=== PATIENT | female | born 1995 | race Hispanic/Latino ===

== ENCOUNTER 2018-03-04 10:46 | Emergency (ER) | payer OTHER, SELFPAY ==
[2018-03-04] MEDS ORDERED: NA CHLORIDE 0.9% 1,000 ML ONE (11:47)
[2018-03-04 12:02] LABS: Absolute Lymphocytes (CBC) 1.4 K/uL (0.7-4.9); Absolute Monocytes 0.7 K/uL (0.1-1.3); Absolute Neutrophil 4.8 K/uL (1.8-8.0); Basophils % 0.9 % (0-1.3); Eosinophils % 2.6 % (0-4.4); Hematocrit 41.4 % (36.0-45.0); MCH 29.6 pg (27.0-35.0); MCV 90.2 fL (80-100); MPV 9.4 fL (7.6-11.3); Monocytes % 9.6 % (3.3-12.3); RBC Red Blood Cell Count 4.59 M/uL (3.86-4.86)
[2018-03-04 12:09] LABS: Urine Bacteria <20 /HPF (<20); Urine Culture Reflex Order NOT NEEDED; Urine RBC <5 /HPF (NONE SEEN)
[2018-03-04 12:10] LABS: Urine Blood NEGATIVE (NEG); Urine Glucose NEGATIVE (NEG); Urine Protein 1+ (NEG); Urine Specific Gravity >1.030 (1.005-1.030)
[2018-03-04 12:10] LABS: Urine Mucus 1+ /HPF (NONE SEEN)
[2018-03-04 12:16] LABS: Bicarbonate 25 mEq/L (21-31); Glucose Level 100 mg/dL (65-120); Lipase 33 U/L (22-51); Potassium 3.8 mEq/L (3.6-5.0); Sodium Level 137 mEq/L (135-145)
[2018-03-04 12:22] LABS: ALT/SGPT 42 IU/L (10-60); AST/SGOT 31 IU/L (10-42); Alkaline Phosphatase 83 IU/L (42-121); Amylase Level 63 U/L (28-100); BUN Blood Urea Nitrogen 15 mg/dL (6-20); Bilirubin Direct 0.1 mg/dL (0-0.2); Bilirubin Total 0.8 mg/dL (0.3-1.2); Protein, Total 7.5 g/dL (6.0-8.3)
[2018-03-04] MEDS ORDERED: ASPIRIN 81 MG CHEWABLE TABLET ONE (12:24)
[2018-03-04] MEDS ORDERED: NA CHLORIDE 0.9% 500 ML ONE (12:24)
[2018-03-04] MEDS ORDERED: KETOROLAC 30 MG/ML INJ ONE (12:31)
--- NOTE | 2018-03-04 14:23 | ER ---
Nurse's Notes [facility] Name: Rimma Sanchez Age: 22 yrs Sex: Female : 1995 Arrival Date: 03/04/2018 Time: 10:50 Bed 24 Private MD: None, None Diagnosis: Lower abdominal pain, unspecified;Unspecified ovarian cysts Presentation: 03/04 11:09 Presenting complaint: Patient states: Abdominal cramps for the past two weeks, she's aj1 been taking Aleve to help with the pain, but it only helps for 30- 45 minutes. 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 Pt has control implant in her left arm that was placed 4 years ago, she has not had a period since control was placed, but had some spotting 2 weeks ago, which she states has not happened before. Denies any current vaginal bleeding. Reports she started taking Adipex 3 weeks ago, but it made her feel weird so she stopped taking it 3 days ago. Transition of care: patient was not received from another setting of care. Onset of symptoms was February 18, 2018. Risk Assessment: Do you want to hurt yourself or someone else? Patient reports no desire to harm self or others. Initial Sepsis Screen: Does the patient meet any 2 criteria? No. Patient's initial sepsis screen is negative. Does the patient have a suspected source of infection? No. Patient's initial sepsis screen is negative. Care prior to arrival: Medication(s) given: Aleve. 11:09 Method Of Arrival: Ambulatory aj1 11:09 Acuity: ELIAS 3 aj1 Triage Assessment: 11:14 General: Appears uncomfortable, Behavior is calm, cooperative, appropriate for age. aj1 Pain: Complains of pain in suprapubic area Pain does not radiate. Pain currently is 10 out of 10 on a pain scale. Quality of pain is described as crampy, Pain began 2 weeks ago Is continuous. GI: Abdomen is non-distended. 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 - Social history:: Smoking status: Patient/guardian denies using tobacco. - Ebola Screening: : Patient negative for fever greater than or equal to 101.5 degrees Fahrenheit, and additional compatible Ebola Virus Disease symptoms Patient denies exposure to infectious person Patient denies travel to an Ebola-affected area in the 21 days before illness onset. Screenin:16 Abuse screen: Denies threats or abuse. Denies injuries from another. Nutritional aj1 screening: No deficits noted. Tuberculosis screening: No symptoms or risk factors identified. Assessment: 11:16 General: Appears in no apparent distress. uncomfortable, Behavior is calm, cooperative, aj1 appropriate for age. Pain: Complains of pain in suprapubic area Pain does not radiate. Pain currently is 10 out of 10 on a pain scale. Quality of pain is described as crampy, Pain began 2 weeks ago Is continuous. Neuro: Level of Consciousness is awake, alert, obeys commands, Oriented to person, place, time, situation, Speech is normal, Facial symmetry appears normal. Cardiovascular: Patient's skin is warm and dry. Respiratory: Airway is patent Respiratory effort is even, unlabored, Respiratory pattern is regular, symmetrical. GI: Abdomen is non-distended, Bowel sounds present X 4 quads. Abd is soft and non tender X 4 quads. Patient currently denies diarrhea, nausea, vomiting, Parent/caregiver reports the patient having cramping. : Denies burning with urination, urinary frequency, urgency, vaginal bleeding, vaginal itching. EENT: No signs and/or symptoms were reported regarding the EENT system. Derm: No signs and/or symptoms reported regarding the dermatologic system. Skin is pink, warm \T\ dry. normal. Musculoskeletal: No signs and/or symptoms reported regarding the musculoskeletal system. Circulation, motion, and sensation intact. 12:05 Reassessment: Patient appears in no apparent distress at this time. No changes from aj1 previously documented assessment. Patient and/or family updated on plan of care and expected duration. Pain level reassessed. Patient is alert, oriented x 3, equal unlabored respirations, skin warm/dry/pink. 12:37 Reassessment: Patient transported to US via wheelchair. aj1 13:35 Reassessment: Patient appears in no apparent distress at this time. No changes from aj1 previously documented assessment. Patient and/or family updated on plan of care and expected duration. Pain level reassessed. Patient is alert, oriented x 3, equal unlabored respirations, skin warm/dry/pink. 14:09 Reassessment: Patient appears in no apparent distress at this time. No changes from aj1 previously documented assessment. Patient and/or family updated on plan of care and expected duration. Pain level reassessed. Patient is alert, oriented x 3, equal unlabored respirations, skin warm/dry/pink. 14:38 Reassessment: Patient is alert, oriented x 3, equal unlabored respirations, skin aa5 warm/dry/pink. Vital Signs: 11:14 BP 133 / 84; Pulse 70; Resp 16; Temp 98.4(O); Pulse Ox 98% on R/A; Weight 99.79 kg (R); aj1 Height 5 ft. 3 in. (160.02 cm) (R); Pain 10/10; 12:05 BP 130 / 90; Pulse 81; Resp 18; Pulse Ox 100% on R/A; aj1 14:08 BP 129 / 88; Pulse 68; Resp 18; Pulse Ox 100% on R/A; aj1 11:14 Body Mass Index 38.97 (99.79 kg, 160.02 cm) aj1 ED Course: 10:50 Patient arrived in ED. sb2 10:51 None, None is Private Physician. sb2 11:06 Verna Richmond, RN is Primary Nurse. aj1 11:10 Kenroy العلي PA is PHCP. cp 11:10 Perez Blanchard MD is Attending Physician. cp 11:13 Triage completed. aj1 11:14 Arm band placed on Patient placed in an exam room, on a stretcher. aj1 11:16 Patient has correct armband on for positive identification. Bed in low position. Call aj1 light in reach. Side rails up X 1. 11:16 No provider procedures requiring assistance completed. aj1 12:50 Transvaginal Study Probe In Process Unspecified. EDMS 14:38 IV discontinued, intact, bleeding controlled, No redness/swelling at site. Pressure aa5 dressing applied. Administered Medications: 12:05 Drug: NS 0.9% 1000 ml Route: IV; Rate: 1 bolus; Site: left antecubital; aj1 12:36 Drug: TORadol 30 mg Route: IVP; Site: left antecubital; aj1 14:40 Follow up: Response: No adverse reaction aj1 Outcome: 14:23 Discharge ordered by . cp 14:38 Discharged to home ambulatory. aa5 14:38 Condition: stable 14:38 Discharge instructions given to patient, Instructed on discharge instructions, follow up and referral plans. medication usage, Demonstrated understanding of instructions, follow-up care, medications, Prescriptions given X 1. 14:39 Patient left the ED. aa5 Signatures: Dispatcher [employer] EDMS Verna Richmond RN RN aj1 Shu Allen RN RN aa5 Kenroy العلي PA PA cp Billeau, Sheri sb2 Corrections: (The following items were deleted from the chart) 11:16 11:09 Presenting complaint: Patient states: Abdominal cramps for the past two weeks, aj1 she's been taking Aleve to help with the pain, but it only helps for 30- 45 minutes. 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 Pt has control implant in her left arm that was placed 4 years ago, she has not had a period since control was placed, but had some spotting 2 weeks ago, which she states has not happened before. Denies any current vaginal bleeding. aj1
--- NOTE | 2018-03-04 14:23 | EDPHYS ---
Physician Documentation [facility] Name: Rimma Sanchez Age: 22 yrs Sex: Female : 1995 Arrival Date: 03/04/2018 Time: 10:50 Bed 24 Private MD: None, None ED Physician Perez Blanchard HPI: 03/04 11:20 This 22 yrs old Female presents to ER via Ambulatory with complaints of cp Abdominal Cramping. 11:20 The patient presents with abdominal pain in the lower abdomen. Onset: The cp symptoms/episode began/occurred 2 week(s) ago. The symptoms do not radiate. Associated signs and symptoms: Pertinent negatives: nausea and vomiting, anorexia, chest pain, constipation, diarrhea, dysuria, fever, vaginal discharge. The symptoms are described as crampy. Modifying factors: the symptoms are aggravated by pressure. 11:20 Patient reports having Implanon control method placed four years ago. Has not had cp menstrual cycle since placement but did have some spotting 2 weeks ago. Denies pain with intercourse, denies vaginal discharge or odor. 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 - Social history:: Smoking status: Patient/guardian denies using tobacco. - Ebola Screening: : Patient negative for fever greater than or equal to 101.5 degrees Fahrenheit, and additional compatible Ebola Virus Disease symptoms Patient denies exposure to infectious person Patient denies travel to an Ebola-affected area in the 21 days before illness onset. ROS: 11:55 Constitutional: Negative for body aches, chills, fever, poor PO intake. cp 11:55 Eyes: Negative for injury, pain, redness, and discharge. cp 11:55 ENT: Negative for drainage from ear(s), ear pain, sore throat, difficulty swallowing, difficulty handling secretions. 11:55 Cardiovascular: Negative for chest pain, edema, palpitations. 11:55 Respiratory: Negative for cough, shortness of breath, wheezing. 11:55 Abdomen/GI: Positive for abdominal cramps, of the right lower quadrant and left lower quadrant, Negative for nausea, vomiting, and diarrhea, constipation, black/tarry stool, rectal bleeding. 11:55 Back: Negative for pain at rest, pain with movement, radiated pain. 11:55 : Negative for urinary symptoms, pelvic pain, vaginal bleeding, vaginal discharge. 11:55 Skin: Negative for cellulitis, rash. 11:55 All other systems are negative. Exam: 12:03 Constitutional: The patient appears in no acute distress, alert, awake, non-toxic, well cp developed, well nourished. 12:03 Head/Face: Normocephalic, atraumatic. cp 12:03 Eyes: Periorbital structures: appear normal, Pupils: equal, round, and reactive to light and accomodation, Extraocular movements: intact throughout, Conjunctiva: normal, no exudate, no injection, Sclera: no appreciated abnormality, Lids and lashes: appear normal, bilaterally. 12:03 ENT: External ear(s): are unremarkable, Nose: is normal, Mouth: is normal, Posterior pharynx: is normal, airway is patent, no erythema, no exudate. 12:03 Chest/axilla: Inspection: normal, Palpation: is normal, no crepitus, no tenderness. 12:03 Cardiovascular: Rate: normal, Rhythm: regular. 12:03 Respiratory: the patient does not display signs of respiratory distress, Respirations: normal, no use of accessory muscles, no retractions, no splinting, no tachypnea, labored breathing, is not present, Breath sounds: are clear throughout, no decreased breath sounds, no stridor, no wheezing. 12:03 Abdomen/GI: Inspection: abdomen appears normal, Bowel sounds: active, all quadrants, Palpation: soft, in all quadrants, mild abdominal tenderness, in the right lower quadrant and left lower quadrant, rebound tenderness, is not appreciated, voluntary guarding, is not appreciated, involuntary guarding, is not appreciated. 12:03 Back: pain, is absent, ROM is normal. 12:03 Skin: cellulitis, is not appreciated, no rash present. 12:03 Neuro: Orientation: to person, place \T\ time. Mentation: lucid, able to follow commands, Cerebellar function: is grossly normal, Motor: moves all fours, strength is normal, Sensation: is normal, Gait: is steady. Vital Signs: 11:14 BP 133 / 84; Pulse 70; Resp 16; Temp 98.4(O); Pulse Ox 98% on R/A; Weight 99.79 kg (R); aj1 Height 5 ft. 3 in. (160.02 cm) (R); Pain 10/10; 12:05 BP 130 / 90; Pulse 81; Resp 18; Pulse Ox 100% on R/A; aj1 14:08 BP 129 / 88; Pulse 68; Resp 18; Pulse Ox 100% on R/A; aj1 11:14 Body Mass Index 38.97 (99.79 kg, 160.02 cm) aj1 MDM: 11:10 Patient medically screened. cp 12:00 Differential diagnosis: Ectopic , Ovarian Torsion, Pelvic Inflammatory cp Disease, Tubal Ovarian Abcess, Ureterolithiasis, urinary tract infection. 14:21 Data reviewed: vital signs, nurses notes, lab test result(s), radiologic studies, cp ultrasound. 14:21 Counseling: I had a detailed discussion with the patient and/or guardian regarding: the cp historical points, exam findings, and any diagnostic results supporting the discharge/admit diagnosis, lab results, radiology results, the need for outpatient follow up, a family practitioner, to return to the emergency department if symptoms worsen or persist or if there are any questions or concerns that arise at home. Response to treatment: the patient's symptoms have mildly improved after treatment. Special discussion: Based on the patient's Hx, exam, and Dx evaluation, there is no indication for emergent surgery or inpatient Tx. It is understood by the patient/guardian that if the Sx's persist or worsen they need to return immediately for re-evaluation. 03/04 11:29 Order name: Amylase, Serum; Complete Time: 12:26 cp 03/04 11:29 Order name: Basic Metabolic Panel; Complete Time: 12:26 cp 03/04 11:29 Order name: CBC with Diff; Complete Time: 12:16 cp 03/04 11:29 Order name: Creatinine for Radiology; Complete Time: 12:26 cp 03/04 11:29 Order name: Hepatic Function; Complete Time: 12:26 cp 03/04 11:29 Order name: Lipase; Complete Time: 12:26 cp 03/04 11:15 Order name: Urine Test (obtain specimen); Complete Time: 11:44 cp 03/04 11:29 Order name: Urine Microscopic Only; Complete Time: 12:16 cp 03/04 12:16 Interpretation: Normal except: SQEPI 5-10. cp 03/04 11:37 Order name: Urine Dipstick--Ancillary (enter results); Complete Time: 12:16 bd 03/04 12:16 Interpretation: Normal except: UPROT 1+. cp 03/04 11:37 Order name: Urine --Ancillary (enter results); Complete Time: 12:16 bd 03/04 12:28 Order name: Transvaginal Study Probe; Complete Time: 14:34 EDMS 03/04 11:15 Order name: Urine Dipstick-Ancillary (obtain specimen); Complete Time: 11:44 cp 03/04 11:29 Order name: IV Saline Lock; Complete Time: 12:05 cp 03/04 11:29 Order name: Labs collected and sent; Complete Time: 12:05 cp Administered Medications: 12:05 Drug: NS 0.9% 1000 ml Route: IV; Rate: 1 bolus; Site: left antecubital; aj1 12:36 Drug: TORadol 30 mg Route: IVP; Site: left antecubital; aj1 14:40 Follow up: Response: No adverse reaction aj1 Disposition: 03/04/18 14:23 Discharged to Home. Impression: Lower abdominal pain, unspecified, Unspecified ovarian cysts. - Condition is Stable. - Discharge Instructions: Ovarian Cyst, Abdominal Pain, Women. - Prescriptions for Naprosyn 500 mg Oral Tablet - take 1 tablet by ORAL route 2 times per day take with food; 20 tablet. - Medication Reconciliation Form, Thank You Letter, Antibiotic Education, Prescription Opioid Use form. - Follow up: Private Physician; When: 2 - 3 days; Reason: Recheck today's complaints. - Problem is new. - Symptoms have improved. Addendum: 03/06/2018 13:34 Co-signature as Attending Physician, Perez Blanchard MD. g s Signatures: Dispatcher [employer] Verna Gupta RN RN aj1 Shu Allen RN RN aa5 Kenroy العلي, PA PA Perez Jewell MD MD Corrections: (The following items were deleted from the chart) 03/04 12:28 12:18 Pelvis Complete+[id number] ordered. EDSD EDMS 14:35 14:23 03/04/2018 14:23 Discharged to Home. Impression: Lower abdominal pain, cp unspecified. Condition is Stable. Forms are Medication Reconciliation Form, Thank You Letter, Antibiotic Education, Prescription Opioid Use. Follow up: Private Physician; When: 2 - 3 days; Reason: Recheck today's complaints. Problem is new. Symptoms have improved. cp 14:39 14:35 03/04/2018 14:23 Discharged to Home. Impression: Lower abdominal pain, aa5 unspecified; Unspecified ovarian cysts. Condition is Stable. Discharge Instructions: Abdominal Pain, Women. Prescriptions for Naprosyn 500 mg Oral Tablet - take 1 tablet by ORAL route 2 times per day take with food; 20 tablet. and Forms are Medication Reconciliation Form, Thank You Letter, Antibiotic Education, Prescription Opioid Use. Follow up: Private Physician; When: 2 - 3 days; Reason: Recheck today's complaints. Problem is new. Symptoms have improved. cp 03/05 12:00 03/04 14:35 Data reviewed: vital signs, nurses notes, lab test result(s), radiologic cp studies, ultrasound, cp
--- NOTE | 2018-03-04 14:30 | RAD REPORT ---
EXAM DESCRIPTION: US - Transvaginal Study Probe - 03/04/2018 12:49 pm CLINICAL HISTORY: Pelvic pain COMPARISON: none FINDINGS: The uterus measures 7 x 3 x 3cm. A fibroid is not seen. Endometrial stripe measures 7 mill imeters. A 2.7 centimeter right ovarian cyst is present. Blood flow is present within the right ovary. The lef t ovary is normal in size and echotexture No significant free fluid is seen. IMPRESSION: 2.7 centimeter right ovarian cyst without significant free fluid
[2018-03-04 14:57] VITALS: TEMP 98.4
[2018-03-04 14:59] VITALS: O2SAT 100
[2018-03-04 15:00] VITALS: BP 129/88
== END 2018-03-04 14:39 | disposition home or self-care (01) ==
LOC: ER 10:46
DX: N83.209 Unspecified ovarian cyst, unspecified side (principal)
CPT/HCPCS: 36415; 76830; 80048; 80076; 81003; 81015; 81025; 82150; 83690; 85025; 96374; 99283; J7030

== ENCOUNTER 2022-07-20 10:54 | Emergency (ER) | payer OTHER, SELFPAY ==
--- OUTSIDE RECORDS SUMMARY | 2022-07-20 10:57 | XMS REPORT | Continuity of Care Document ---
:1995 Author Organization [facility] Address [address] [place] [address] Care Team Providers Name Role Phone Tay Paul Primary Care Physician [phone] GAIL Attending Clinician Unavailable Mary Carter RN Attending Clinician Unavailable Only, Ang Db Test Attending Clinician Unavailable Shaka Arita Attending Clinician SHAKA BOLES Attending Clinician Unavailable TAY ROME Attending Clinician Unavailable Tay Paul Attending Clinician Doctor Unassigned, [place] Attending Clinician Unavailable GAIL Admitting Clinician Unavailable Payers Payer Name Policy Type Policy Number Effective Date Expiration Date Silvia abhay R (PPO) [id number] 2017 00:00:00 [place] [id number] 2019 00:00:00 [facility] (MEDICAID) Problems Condition Condition Condition Status Onset Resolution Last Treating Co mments Source Name Details Category Date Date Treatment Clinician Date Need for Need for Disease Active 2019-10 Unive rs HPV HPV 0-08 ity of vaccinatio vaccinatio 00:00: Jhonatan mcdonald n n 00 Medical Branch Gonorrhea Gonorrhea Disease Active Uni vers 8-22 ity of 00:00: [place] 00 [facility] Chlamydia Chlamydia Disease Active Uni vers 8-22 ity of 00:00: [place] [facility] Class 2 Class 2 Disease Active Univers obesity obesity 8-21 ity of with body with body 00:00: Tyson brandt mass index mass index 00 Me dical (BMI) of (BMI) of Branch 39.0 to 39.0 to 39.9 in 39.9 in adult, adult, unspecifie unspecifie d obesity d obesity type, type, unspecifie unspecifie d whether d whether serious serious comorbidit comorbidit y present y present HPV HPV Disease Active Univers vaccine vaccine 8-21 ity of counseling counseling 00:00: [place] 00 [facility] Postcoital Postcoital Disease Active U nivers bleeding bleeding 8-21 ity of 00:00: [place] [facility] Irregular Irregular Disease Active Uni vers menstrual menstrual 8-21 ity of cycle cycle 00:00: [address] Encounter Encounter Disease Active Uni vers for for 8-21 ity of contracept contracept [place] vishal vishal 00 Medical management management Br anch , , unspecifie unspecifie d type d type Well woman Well woman Disease Active U nivers exam (no exam (no 8-21 ity of gynecologi gynecologi [place] edie exam[place] edie exam) 00 [facility] Nexplanon Nexplanon Disease Active 2015-10 Uni vers removal removal 2-29 ity of 00:00: [place] [facility] Nexplanon Nexplanon Disease Active 2015-10 Uni vers insertion insertion 2-15 ity of 00:00: [address] Well woman Well woman Disease Active 2015-10 U nivers exam exam 0-20 ity of 00:00: [address] Screening Screening Disease Active 2015-10 Uni vers examinatio examinatio 0-20 it y of n for STD n for STD 00:00: Tyson brandt (sexually (sexually 00 [facility] transmitte transmitte Br anch d disease) d disease) BMI BMI Disease Active 2015-10 Univers 36.0-36.9, 36.0-36.9, 0-20 it y of adult adult 00:00: [place] [id number] Medical Branch H/O H/O Disease Active 2015-10 Univers chlamydia chlamydia 0-20 ity of infection infection 00:00: [place] [address] Allergies, Adverse Reactions, Alerts Allergy Allergy Status Severity Reaction(s) Onset Inactive Treating Comm ents Source Name Type Date Date Clinician NO KNOWN Drug Active Univers ALLERGIE Class ity of S [facility] Social History Social Habit Start Date Stop Date Quantity Comments Source History SDOH University o f Alcohol Frequency [place] M edical Branch History SDOH University o f Alcohol Std [place] [facility] Drinks Branch History SDOH University o f Alcohol Binge [place] Medic al Branch Exposure to Not sure University of SARS-CoV-2 [facility] (event) [place] Alcohol intake 2020-07-11 2020-07-11 Current drinker Unive rsity of 00:00:00 00:00:00 of alcohol [facility] (finding) [place] Alcohol Comment 2013-03-30 2013-03-30 occasional Universit y of 00:00:00 00:00:00 [facility] Tobacco use and 2013-01-27 2013-01-27 Never used Universit y of exposure 00:00:00 00:00:00 [facility] Sex Ass[birth year] At [birth year] Universit y of 00:00:00 00:00:00 [facility] Smoking Status Start Date Stop Date Source Never Smoker [facility] Medications Ordered Filled Start Stop Current Ordering Indication Dosage Frequency Signature Comments Components Source Medication Medication Date Date Medication? Clinician (SIG) Name Name No known 2019-10 No Univers medications 0-08 ity of 16:13: [address] No known 2019-10 No Univers medications 0-08 ity of 16:13: [address] No known No Univers medications [facility] No known No Univers medications [facility] No known No Univers medications [facility] clindamycin clindamycin No 1applic Q1D clindamyci [place] 2 % vaginal 2 % vaginal ator(s) n 2 % da cream cream ful vaginal [facility] Insert 1 Insert 1 cream al applicatorf applicatorf Insert 1 Health ul every ul every applicator O utreac day by day by ful every h vaginal vaginal day by Program route at route at vaginal bedtime for bedtime for route at 7 days. 7 days. bedtime for 7 days. Immunizations Ordered Filled Immunization Date Status Comments Sourc e Immunization Name Name HPV9 2020-07-11 Completed University of 00:00:00 [facility] HPV9 2020-07-11 Completed University of 00:00:00 [facility] HPV9 2019-07-24 Completed University of 00:00: [facility] HPV9 2019-07-24 Completed University of 00:00: [facility] Branch HPV9 2019-05-24 Completed University of 00:00:00 [facility] Branch HPV9 2019-05-24 Completed University of 00:00: [facility] Branch HPV9 2019-05-24 Completed University of 00:00: [facility] HPV9 2019-05-24 Completed University of 00:00:00 [facility] TDAP 2010-10-04 Completed University of 00:00:00 [facility] Tdap 2010-10-04 Completed University of 00:00:00 [facility] Tdap 2010-10-04 Completed University of 00:00:00 [facility] Tdap 2010-10-04 Completed University of 00:00:00 [facility] TDAP 2010-10-04 Completed University of 00:00:00 [facility] Vital Signs Vital Name Observation Time Observation Value Comments Source BP Diastolic 2022-04-29 00:00:00 88 mm[Hg] [place] [facility] Height 2022-04-29 00:00:00 63 [in_i] [place] [facility] BMI (Body Mass 2022-04-29 00:00:00 39.5 kg/[facility]2 [facility] Index) [facility] BP Systolic 2022-04-29 00:00:00 117 mm[Hg] [place] [facility] Body Weight 2022-04-29 00:00:00 3568 [oz_av] [place] [facility] BP Diastolic 2022-01-19 00:00:00 84 mm[Hg] [place] [facility] Height 2022-01-19 00:00:00 63 [in_i] [place] [facility] BMI (Body Mass 2022-01-19 00:00:00 40.2 kg/m2 [place] animal [facility] code enforcement officer Index) [facility] BP Systolic 2022-01-19 00:00:00 126 mm[Hg] [place] [facility] Body Weight 2022-01-19 00:00:00 227 [lb_av] [place] [facility] BP Diastolic 2021-09-05 00:00:00 78 mm[Hg] [place] [facility] Height 2021-09-05 00:00:00 63 [in_i] [place] [facility] BMI (Body Mass 2021-09-05 00:00:00 40.6 kg/m2 [facility] animal park code enforcement officer Index) [facility] BP Systolic 2021-09-05 00:00:00 112 mm[Hg] [place] [facility] Body Weight 2021-09-05 00:00:00 229 [lb_av] [place] [facility] BP Diastolic 2021-08-07 00:00:00 82 mm[Hg] [place] [facility] Height 2021-08-07 00:00:00 63 [in_i] [place] [facility] BMI (Body Mass 2021-08-07 00:00:00 40.9 kg/m2 [facility] animal park code enforcement officer Index) [facility] BP Systolic 2021-08-07 00:00:00 115 mm[Hg] [place] [facility] Body Weight 2021-08-07 00:00:00 231 [lb_av] [place] [facility] Systolic blood 2019-05-24 15:36:00 116 mm[Hg] Prema garcia pressure [facility] Diastolic blood 2019-05-24 15:36:00 75 mm[Hg] [facility] Heart rate 2019-05-24 15:36:00 72 /min [facility] Body temperature 2019-05-24 15:36:00 36.56 [facility] Respiratory rate 2019-05-24 15:36:00 16 /min Univ [facility] Body height 2019-05-24 15:36:00 160 cm [facility] Body weight 2019-05-24 15:36:00 94.405 kg [facility] BMI 2019-05-24 15:36:00 36.87 kg/m2 [facility] Procedures Procedure Date / Time Performed Performing Clinician Ewdard enrique GARDASIL 9 (HPV 9V) 2019-05-24 16:01:31 Tay [facility] ASSIGNMENT OF BENEFITS 2019-05-24 15:14:28 Doctor Unassigned, No [facility] Encounters Start End Encounter Admission Attending Care Care Encounter Source Date/Time Date/Time Type Type Clinicians Facility Department ID 2022-04-30 2022-04-30 Outpatient VILLA ARREGUIN [facility] [id number] [place] 00:00:00 00:00:00 SSA [id number] da [facility] 2022-04-29 2022-04-29 [facility] - [id number] [place] 00:00:00 00:00:00 Reed Lombardo da CHICKEN CUTTER-PHOTOGRAPHIC INTELLIGENCE OFFICER-C: Taoist Epi scop [address] [facility] [id number] Progr am , Ph. 2022-01-19 2022-01-19 Hortencia DRIVER [facility] [id number] [place] 00:00:00 00:00:00 Amanda SSA Bond da Robbi, Taoist Episco p PHOTOGRAPHIC INTELLIGENCE OFFICER: [address] [facility] F N, RETAIL OPERATIONS SPECIALIST [facility] [address] Progr am , Ph. 2021-11-07 2021-11-07 Letter PREMA Carter [id number] Univers 00:00:00 00:00:00 (Out) Mary MARES [id number] y [facility] [id number] [place] as [phone] [address] 2021-11-06 2021-11-06 Laboratory Only, Ang Db Test [facility] [id number] Univers 12:30:00 12:45:00 Only Shaka Boles [facility] [id number] [facility] [id number] [place] as KEESHA?BLEA [id number] [facility] [address] MEDICAL OFFICE BUILDING 2021-11-06 2021-11-06 Outpatient R BERTIN, [facility] [id number] Univers 12:30:00 12:30:00 SHAKA [facility] 2021-09-16 2021-09-16 Outpatient R WILD, [facility] [id number] Univers 14:45:00 14:45:00 TAY renteria o f [facility] 2021-09-05 2021-09-05 Hortencia DRIVER [facility] [place] - [id number] [place] 00:00:00 00:00:00 Amanda SSA Bond [id number] da Robbi, Taoist Episco p PHOTOGRAPHIC INTELLIGENCE OFFICER: [address] F N, RETAIL OPERATIONS SPECIALIST [facility] [address] Hubert bell , Ph. 2021-09-04 2021-09-04 Outpatient VILLA ARREGUIN [place] [id number] [place] 10:28:00 10:28:00 SSA [id number] [facility] 2021-08-07 2021-08-07 Hortencia DRIVER [place] - [id number] [place] 00:00:00 00:00:00 Amanda SSA Bond [address] da Robbi, Taoist Episco p PHOTOGRAPHIC INTELLIGENCE OFFICER: [address] F N, RETAIL OPERATIONS SPECIALIST [facility] [place] [address] Progr arabella , Ph. 2021-08-06 2021-08-06 Outpatient VILLA ARREGUIN [place] [id number] [place] 05:38:00 05:38:00 SSA [id number] [facility] 2020-11-23 2020-11-23 Outpatient R [facility] [id number] Univers 11:40:00 11:40:00 ity of [facility] 2020-10-18 2020-10-18 Outpatient R WILD [facility] [id number] Univers 13:30:00 13:30:00 TAY renteria o leticia [facility] 2020-10-14 2020-10-14 Outpatient R WILD [facility] [id number] Univers 15:15:00 15:15:00 TAY renteria o leticia [facility] 2020-07-11 2020-07-11 Outpatient R WILD [facility] [id number] Univers 15:30:00 15:30:00 TAY kelly [facility] 2020-05-28 2020-05-28 Outpatient R WILD [facility] [id number] Univers 10:15:00 10:15:00 TAY kelly [facility] 2020-04-17 2020-04-17 Outpatient Sandra ROME [facility] [id number] Univers 09:45:00 09:45:00 TAY kelly [facility] 2020-04-17 2020-04-17 Outpatient R WILD [facility] [id number] Univers 09:30:00 09:30:00 TAY kelly [facility] 2020-03-13 2020-03-13 Outpatient Sandra ROME [facility] [id number] Univers 08:15:00 08:15:00 TAY hui [facility] 2019-05-24 2019-05-24 Office Wild MDOLEGARIO [id number] Univers 10:23:21 11:23:15 Visit Tay R [employer] [id number] ity of [facility] [id number] [place] as MATERNAL [id number] Med ical & CHILD [address] [place] [address] 2019-05-24 2019-05-24 Orders Doctor PREMA [id number] Univers 00:00:00 00:00:00 Only Unassigned, VISHNU [id number] ity of [place] [facility] [id number] [place] [id number] [place] [address] Branch Results Test Description Test Time Test Comments Results Result Comments Source Cytology report of Cervical or vaginal smear or scrapi ng Cyto 2021-08-09 00:00:00 stain.thin prep Test Item Value Reference Range Interpretation Comme nts age gdln acog testing (test code = age gdln acog testing) 21-29 Cytology report of Cervical or vaginal smear or scraping Cyto comme nt stain (test code = 33578-1) Statement of adequacy [Interpretation] of Cervical or vaginal comme nt smear or scraping by Cyto stain (test code = 35657-0) Job Coaching who read Cyto stain of Cervical or vaginal smear or comm ent scraping (test code = 33846-7) Microscopic observation [Identifier] in Unspecified specimen by . Other stain (test code = 69248-1) note: (test code = note:) comment Cytology report of Cervical or vaginal smear or scraping Cyto comme nt stain.thin prep (test code = 71644-3) Chlamydia trachomatis rRNA [Presence] in Cervix by DAGOBERTO with positiv e negative A probe detection (test code = 69744-4) Neisseria gonorrhoeae rRNA [Presence] in Cervix by DAGOBERTO with negativ e negative probe detection (test code = 70535-4) Trichomonas vaginalis rRNA [Presence] in Unspecified specimen ne gative negative by DAGOBERTO with probe detection (test code = 49670-7) [facility] [Presence] in Serum by RPR 2021-08-08 00:00:00 Test Item Value Reference Range Interpretation Comments Reagin Ab [Presence] in Serum by non reactive non reactive RPR (test code = 43507-1) [facility] Ab+HIV1 p24 Ag [Presence] in Serum or Plasma by [id number] 00:00:00 Test Item Value Reference Range Interpretation Comments HIV 1+2 Ab+HIV1 p24 Ag non reactive non reactive [Presence] in Serum or Plasma by Immunoassay (test code = 95167-3) [facility] virus surface Ag [Presence] in Serum or Plasma by [id number] 00:00:00 Test Item Value Reference Range Interpretation Comments Hepatitis B virus surface Ag negative negative [Presence] in Serum or Plasma by Immunoassay (test code = 5196-1) [facility] [Presence] in Serum by RPR 2021-08-08 00:00:00 Test Item Value Reference Range Interpretation Comments Reagin Ab [Presence] in Serum by non reactive non reactive RPR (test code = 70396-6) [facility] Ab+HIV1 p24 Ag [Presence] in Serum or Plasma by [id number] 00:00:00 Test Item Value Reference Range Interpretation Comments HIV 1+2 Ab+HIV1 p24 Ag non reactive non reactive [Presence] in Serum or Plasma by Immunoassay (test code = 99795-4) [facility] surface Ag [Presence] in Serum or Plasma by [id number] 00:00:00 Test Item Value Reference Range Interpretation Comments Hepatitis B virus surface Ag negative negative [Presence] in Serum or Plasma by Immunoassay (test code = 5196-1) [facility]
--- NOTE | 2022-07-20 12:36 | RAD REPORT ---
EXAM DESCRIPTION: RAD - Foot Right 3 View - 07/20/2022 12:16 pm CLINICAL HISTORY: Right foot pain status post injury FINDINGS: 1 centimeter bony density lies adjacent to the lateral aspect of the cuboid. This probably represents an acute avulsed fracture fragment. Less likely this represents an unusual appearing ossi salbador. Clinical correlation is needed to confirm point tenderness in this region. If the diagnosis marilyn ins uncertain CT would be recommended. No dislocation
--- NOTE | 2022-07-20 12:51 | ER ---
Nurse's Notes [facility] Name: Rimma Sanchez Age: 26 yrs Sex: Female : 1995 Arrival Date: 07/20/2022 Time: 10:56 Bed Treatment Private MD: Diagnosis: Nondisplaced fracture of cuboid bone of left foot, subsequent encounter for fracture with routine healing Presentation: 07/20 11:03 Chief complaint: Patient states: About a week in a half ago pt stated stepped down from vg1 stairs and Right Foot 'folded' and since then pain has not subsided. Coronavirus screen: Vaccine status: Patient reports being unvaccinated. Client denies travel out of the [place] in the last 14 days. Ebola Screen: Patient negative for fever greater than or equal to 101.5 degrees Fahrenheit, and additional compatible Ebola Virus Disease symptoms Patient denies exposure to infectious person. Initial Sepsis Screen: Does the patient meet any 2 criteria? No. Patient's initial sepsis screen is negative. Does the patient have a suspected source of infection? No. Patient's initial sepsis screen is negative. Risk Assessment: Do you want to hurt yourself or someone else? Patient reports no desire to harm self or others. Onset of symptoms was July 07, 2022. 11:03 Method Of Arrival: Ambulatory [facility] 11:03 Acuity: ELIAS 4 vg1 Triage Assessment: 11:04 General: Appears in no apparent distress. comfortable, Behavior is calm, cooperative. vg1 Pain: Complains of pain in right foot. 11:04 Musculoskeletal: Capillary refill < 3 seconds, fingers. toes. vg1 HAND COLLATOR: 11:04 [facility] 06/2022 vg1 Historical: - Allergies: 11:04 No Known Allergies; vg1 - Home Meds: 11:04 None [Active]; vg1 - PMHx: 11:04 None; vg1 - PSHx: 11:04 None; vg1 - Immunization history:: Client reports having NOT received the Covid vaccine. - Social history:: Smoking status: Patient denies any tobacco usage or history of. Screenin:08 Abuse screen: Denies threats or abuse. Nutritional screening: On. Tuberculosis kr3 screening: No symptoms or risk factors identified. Fall Risk None identified. Assessment: 11:09 General: Appears in no apparent distress. comfortable, Behavior is calm, cooperative, kr3 appropriate for age. Musculoskeletal: Range of motion: intact in all extremities. 11:15 Pain: Complains of pain in dorsum of right foot. kr3 11:56 General: Appears in no apparent distress. comfortable, Behavior is calm, cooperative. tp1 Pain: Complains of pain in right foot Pain does not radiate. Pain currently is 5 out of 10 on a pain scale. at worst was 8 out of 10 on a pain scale. Quality of pain is described as throbbing, Pain began 07/07/22 Is continuous, Aggravated by weight bearing. Neuro: Level of Consciousness is awake, alert, obeys commands, Oriented to person, place, time, situation. Cardiovascular: Capillary refill < 3 seconds in bilateral toes Patient's skin is warm and dry. Pulses are palpable in right posterior tibial artery and right dorsalis pedis artery. Respiratory: Airway is patent Respiratory effort is even, unlabored. GI: No signs and/or symptoms were reported involving the gastrointestinal system. : No signs and/or symptoms were reported regarding the genitourinary system. EENT: No signs and/or symptoms were reported regarding the EENT system. Derm: Skin is pink, warm \T\ dry. Musculoskeletal: Circulation, motion, and sensation intact. 13:20 Reassessment: contacted central supply for walking boot. boot unavailable in PT size, tp1 provider notified. Vital Signs: 11:03 BP 125 / 88; Pulse 87; Resp 16; Temp 98.0; Pulse Ox 100% ; Weight 101.15 kg; Height 5 vg1 ft. 3 in. (160.02 cm); Pain 5/10; 13:18 BP 118 / 76; Pulse 75; Resp 16; Pulse Ox 98% on R/A; tp1 11:03 Body Mass Index 39.50 (101.15 kg, 160.02 cm) vg1 ED Course: 10:56 Patient arrived in ED. rg4 11:00 Kae Valdes [facility]-C [facility] snw 11:00 Melanie Owens MD is Attending Physician. snw 11:04 Triage completed. vg1 11:04 Arm band placed on. vg1 11:07 Rut Valdez RN is Primary Nurse. kr3 11:07 Bed in low position. Call light in reach. Side rails up X 1. kr3 11:56 No provider procedures requiring assistance completed. Patient did not have IV access tp1 during this emergency room visit. 12:17 Primary Nurse role handed off by Rut Valdez, AKHIL tp1 12:17 Argelia Kolb, RN is Primary Nurse. tp1 12:18 Foot Right 3 View XRAY In Process Unspecified. EDMS Administered Medications: No medications were administered Medication: 11:56 VIS not applicable for this client. tp1 Outcome: 12:51 Discharge ordered by . nolan 13:29 Discharged to home ambulatory. tp1 13:29 Condition: good 13:29 Discharge instructions given to patient, Instructed on discharge instructions, follow up and referral plans. medication usage, Demonstrated understanding of instructions, follow-up care, medications, Prescriptions given X 1. 13:29 Patient left the ED. tp1 Signatures: Dispatcher [employer] EDMS Kae Valdes FNP-C FURNACE COOLER-Consuelo Khan rg4 Valerie Sanchez RN RN vg1 Argelia Kolb RN RN tp1 Rut Valdez, AKHIL RN kr3 Corrections: (The following items were deleted from the chart) 11:05 11:03 Chief complaint: Patient states: Last week pt stated stepped down from stairs and vg1 Right Foot 'folded' and since then pain has not subsided. vg1 11:05 11:03 Onset of symptoms was July 13, 2022 vg1 vg1
--- NOTE | 2022-07-20 12:51 | EDPHYS ---
Physician Documentation [facility] Name: Rimma Sanchez Age: 26 yrs Sex: Female : 1995 Arrival Date: 07/20/2022 Time: 10:56 Bed Treatment Private MD: ED Physician Melanie Owens HPI: 07/20 11:55 This 26 yrs old Female presents to ER via Ambulatory with complaints of Ankle snw Pain. 11:55 The patient presents with pain, that is acute. The complaints affect the right foot. snw Context: The problem was sustained outdoors, resulted from a mis-step by the patient, hole, the patient is able to ambulate. Onset: The symptoms/episode began/occurred acutely. Associated signs and symptoms: The patient has no apparent associated signs or symptoms. Severity of symptoms: At their worst the symptoms were moderate. The patient has experienced similar episodes in the past. The patient has not recently seen a physician. pt stepped in a hole, lateral right foot pain, fell to left knee (contusion noted). 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 - Social history:: Smoking status: Patient denies any tobacco usage or history of. ROS: 11:54 Constitutional: Negative for fever, chills, and weight loss, Eyes: Negative for injury, snw pain, redness, and discharge, ENT: Negative for injury, pain, and discharge, Neck: Negative for injury, pain, and swelling, Cardiovascular: Negative for chest pain, palpitations, and edema, Respiratory: Negative for shortness of breath, cough, wheezing, and pleuritic chest pain, Abdomen/GI: Negative for abdominal pain, nausea, vomiting, diarrhea, and constipation, Back: Negative for injury and pain, : Negative for injury, bleeding, discharge, and swelling, Skin: Negative for injury, rash, and discoloration, Neuro: Negative for headache, weakness, numbness, tingling, and seizure. 11:54 MS/extremity: Positive for injury or acute deformity, pain, of the lateral side of right foot. Exam: 11:53 Constitutional: This is a well developed, well nourished patient who is awake, alert, snw and in no acute distress. Head/Face: Normocephalic, atraumatic. Eyes: Pupils equal round and reactive to light, extra-ocular motions intact. Lids and lashes normal. Conjunctiva and sclera are non-icteric and not injected. Cornea within normal limits. Periorbital areas with no swelling, redness, or edema. ENT: Nares patent. No nasal discharge, no septal abnormalities noted. Tympanic membranes are normal and external auditory canals are clear. Oropharynx with no redness, swelling, or masses, exudates, or evidence of obstruction, uvula midline. Mucous membranes moist. Neck: Trachea midline, no thyromegaly or masses palpated, and no cervical lymphadenopathy. Supple, full range of motion without nuchal rigidity, or vertebral point tenderness. No Meningismus. Chest/axilla: Normal chest wall appearance and motion. Nontender with no deformity. No lesions are appreciated. Cardiovascular: Regular rate and rhythm with a normal S1 and S2. No gallops, murmurs, or rubs. Normal PMI, no JVD. No pulse deficits. Respiratory: Lungs have equal breath sounds bilaterally, clear to auscultation and percussion. No rales, rhonchi or wheezes noted. No increased work of breathing, no retractions or nasal flaring. Abdomen/GI: Soft, non-tender, with normal bowel sounds. No distension or tympany. No guarding or rebound. No evidence of tenderness throughout. Back: No spinal tenderness. No costovertebral tenderness. Full range of motion. Skin: Warm, dry with normal turgor. Normal color with no rashes, no lesions, and no evidence of cellulitis. Neuro: Awake and alert, GCS 15, oriented to person, place, time, and situation. Cranial nerves II-XII grossly intact. Motor strength 5/5 in all extremities. Sensory grossly intact. Cerebellar exam normal. Normal gait. Psych: Awake, alert, with orientation to person, place and time. Behavior, mood, and affect are within normal limits. 11:53 Musculoskeletal/extremity: Extremities: grossly normal except: noted in the lateral side of right foot: contusion, tenderness, ROM: no acute changes, Circulation is intact in all extremities. Sensation intact. Vital Signs: 11:03 BP 125 / 88; Pulse 87; Resp 16; Temp 98.0; Pulse Ox 100% ; Weight 101.15 kg; Height 5 vg1 ft. 3 in. (160.02 cm); Pain 5/10; 13:18 BP 118 / 76; Pulse 75; Resp 16; Pulse Ox 98% on R/A; tp1 11:03 Body Mass Index 39.50 (101.15 kg, 160.02 cm) vg1 MDM: 11:13 Patient medically screened. snw 12:48 Data reviewed: vital signs, nurses notes. Data interpreted: Pulse oximetry: on room air snw is 100 %. Interpretation: normal. Counseling: I had a detailed discussion with the patient and/or guardian regarding: the historical points, exam findings, and any diagnostic results supporting the discharge/admit diagnosis, radiology results, the need for outpatient follow up, to return to the emergency department if symptoms worsen or persist or if there are any questions or concerns that arise at home. Response to treatment: the patient's symptoms have mildly improved after treatment. Special discussion: I have referred the patient to see his PCP for further evaluation of high blood pressure. Based on the history and exam findings, there is no indication for further emergent testing or inpatient evaluation. I discussed with the patient/guardian the need to see the orthopedic surgeon for further evaluation of the symptoms. 07/20 11:27 Order name: Foot Right 3 View XRAY; Complete Time: 12:45 snw 07/20 12:11 Order name: Walking boot; Complete Time: 13:15 snw Administered Medications: No medications were administered Disposition Summary: 07/20/22 12:51 Discharge Ordered Location: Home snw Condition: Stable snw Diagnosis - Nondisplaced fracture of cuboid bone of left foot, subsequent encounter for snw fracture with routine healing Followup: snw - With: Emergency Department - When: As needed - Reason: Worsening of condition Followup: snw - With: Private Physician - When: 2 - 3 days - Reason: Recheck today's complaints, Continuance of care, Re-evaluation by your physician Discharge Instructions: - Discharge Summary Sheet snw - Cuneiform Fracture snw - RICE Therapy for Routine Care of Injuries snw - Walking Boot, Adult snw - Tarsal Fracture snw Forms: - Medication Reconciliation Form snw - Thank You Letter snw - Antibiotic Education snw - Prescription Opioid Use snw Prescriptions: - Tramadol 50 mg Oral Tablet - take 1 tablet by ORAL route every 8 hours as needed; 12 tablet; Refills: 0, snw Product Selection Permitted Addendum: 07/23/2022 03:26 STAFF ATTESTATION STATEMENT: I was immediately available onsite in the emergency s d2 department for consultation in the care of this patient. I did not see or examine this patient. Melanie Owens MD. Signatures: Dispatcher [employer] EDKae Greenfield FNP-C [employer]-Cesarw Valerie Sanchez, RN RN vg1 Melanie Owens MD MD sd2
[2022-07-20 13:57] VITALS: TEMP 98
[2022-07-20 14:04] VITALS: BP 118/76; O2SAT 98
== END 2022-07-20 13:29 | disposition home or self-care (01) ==
LOC: ER 10:54
DX: S92.215D Nondisplaced fracture of cuboid bone of left foot, subsequent encounter for fracture with routine healing (principal); X58.XXXA Exposure to other specified factors, initial encounter; Y93.9 Activity, unspecified; Y92.9 Unspecified place or not applicable
CPT/HCPCS: 99283